=== PATIENT | female | born 1975 | race Caucasian/White ===

== ENCOUNTER 2016-08-25 07:49 | Emergency (ER) | payer SELFPAY ==
[~2016-08-25] VITALS: Ht 160 cm; Wt 65.0 kg
[~2016-08-25 07:49] MED LIST: IBUP600T26 PO
[2016-08-25 07:52] VITALS: BP 128/77; PULSE 102; RESP 15; TEMP 98.2; O2SAT 99
--- NOTE | 2016-08-25 08:08 | PD ---
HPI Chief Complaint: Laceration/Skin Injury Time Seen by Provider: 08:04 Travel History International Travel<30 days: No Contact w/Intl Traveler<30days: No Traveled to known affect area: No History of Present Illness HPI Patient comes in with multiple complaints. Patient states around 3:00 this morning she had to break into her vehicle after accidentally locking her keys in them. Patient states she used her left hand to break the window causing a small laceration to the ulnar aspect of the left wrist. Patient states she then slipped injuring her right foot and landing on her left knee causing pain in both. Patient reports a burning sensation around the site of the laceration on her wrist without radiation. Describes a "hurting" pain is a lateral proximal aspect of the right foot without radiation. Patient reports a throbbing aching pain in the anterior aspect of her left knee around the abrasions without radiation. Pain is worse with certain movement and palpation. Patient denies anything for this or that washing the wounds prior to coming to the emergency department. Patient reports that her tetanus shot is up-to-date. PFSH Past Medical History Asthma: Yes Anxiety: Yes Depression: Yes Cancer: No Cardiovascular Problems: No High Cholesterol: Yes Diabetes: No Diminished Hearing: No Endocrine: Yes Genitourinary: Yes (RECURRENT / FREQUENT UTI'S) Immune Disorder: No Kidney Stones: Yes Musculoskeletal: Yes (HERNIATED DISCS) Neurologic: No Psychiatric: Yes Reproductive: No Respiratory: Yes (ASTHMA) Immunizations Current: No Thyroid Disease: Yes ?: Not : 12 Para: 3 Miscarriage: 9 Tubal Ligation: Yes Past Surgical History Section: Yes Cholecystectomy: Yes Social History Alcohol Use: Yes Tobacco Use: Yes (1 PPD) Substance Use: No Allergies-Medications (Allergen,Severity, Reaction): Coded Allergies: Aspirin (Verified Allergy, Severe, N&V, 08/25/16) Gabapentin (Verified Allergy, Severe, SWELLING-RASH, 08/25/16) Macrolides (Verified Allergy, Severe, 08/25/16) vent-fibrillation Phenergan (Verified Allergy, Severe, 08/25/16) Vent-Tachycardia Zofran (Verified Allergy, Severe, 08/25/16) Multifocal PVC's secondary to prolonged QT interval w/ runs of ventricular tachycardia Tramadol (Verified Allergy, Mild, GI UPSET, 08/25/16) Morphine (Verified Allergy, Unknown, 08/25/16) Ultram (Verified Allergy, Unknown, 08/25/16) Codeine (Verified Adverse Reaction, Severe, NAUSEA/VOMITING, 08/25/16) Uncoded Allergies: fluoroquinolones (Allergy, Severe, 07/13/15) vent-fibrillation Reported Meds & Prescriptions Reported Meds & Active Scripts Active No Active Prescriptions or Reported Medications Review of Systems Except as stated in HPI: all other systems reviewed are Neg Physical Exam Narrative GENERAL: Well-developed, well nourished, in no acute distress, and non-ill appearing. SKIN: Warm and dry. Superficial abrasions noted over left knee. Small laceration noted over aspect left wrist. HEAD: Atraumatic. Normocephalic. EYES: Pupils equal and round. EOMI. No scleral icterus. No injection or drainage. ENT: No nasal bleeding or discharge. Mucous membranes pink and moist. NECK: Trachea midline. Supple. No nuclear rigidity. CARDIOVASCULAR: Radial dorsal pulses 2+ and intact bilaterally. Capillary refill less than 2 seconds. No pedal edema. RESPIRATORY: No accessory muscle use. No respiratory distress. MUSCULOSKELETAL: No obvious deformities. No clubbing. No cyanosis. No edema. Full range of motion. Wrist: FROM and equal BL with passive flexion, extension, and pronation/supination. Capillary refill less than 2 seconds distal to injury and equal BL. FROM distal to injury and equal BL. Strength distal to injury equal BL. NV intact distal to injury. Flexion and extension of thumb equal BL. Equal strength and movement with abduction/adductions of BL fingers. Board Catcher strength equal BL. No tenderness to the anatomical snuffbox. Patient reports tenderness to palpation around laceration left wrist.Knee: Negative patellar apprehension, varus and valgus maneuvers, anterior draw test, and Kyree test. Pulses equal BL distal to injury. Capillary refill less than 2 seconds distal to injury and equal BL. FROM distal to injury and equal BL. Strength distal to injury equal BL. NV intact distal to injury. Dorsal pulses equal BL. Patient reports tenderness to palpation over anterior aspect of left knee. Ankle: Neagative anterior draw and Yeager test. Negative Otis's sign. No laxity noted with passive inversion and eversion of BL ankles. Negative squeeze test. Pulses equal BL distal to injury. Capillary refill less than 2 seconds distal to injury and equal BL. Sensation equal BL 1st web space. FROM of toes distal to injury and equal BL. NV intact distal to injury and equal BL. Dorsal pulses equal BL. Patient reports tenderness around soft tissue swelling noted proximal lateral aspect dorsal surface of right foot. NEUROLOGICAL: Awake and alert. No obvious cranial nerve deficits. Motor grossly within normal limits. Normal speech. PSYCHIATRIC: Appropriate mood and affect; insight and judgment normal. Data Data Last Documented VS Vital Signs Date Time Temp Pulse Resp B/P Pulse Ox O2 Delivery O2 Flow Rate FiO2 08/25/16 07:52 98.2 102 15 128/77 99 Orders Wound Care (08/25/16 08:02) Bupivacaine Pf 0.5% Inj (Marcaine Pf 0.5 (08/25/16 08:15) Foot, Complete ([id number]) (08/25/16 ) Knee, Complete (4vws) (08/25/16 ) Wrist, Complete ([id number]) (08/25/16 ) Ice/Cold Pack (08/25/16 08:08) Splint Or Brace Apply/Monitor (08/25/16 10:02) [facility] Medical Decision Making Medical Screen Exam Complete: Yes Emergency Medical Condition: Yes Differential Diagnosis Fracture, strain, contusion, abrasion, laceration, foreign body, other Narrative Course The patient suffered laceration to the extremity. There was no evidence to suggest foreign bodies. Visual, tactile and radiographic exams were unremarkable without evidence of foreign body at this time. There was no evidence of neurovascular injury. The patient had a normal distal vascular exam , and had full normal motor and sensory exams. There was also no evidence or tendon injury, with normal distal full range of motions, flexion, extension, abduction, adduction and opponens. There was no evidence of local joint space involvement at this time. The patient was irrigated with copious sterile normal saline and primary repair was performed. Please see procedure note. The patient was given signs and symptom warnings for infection, such as increasing pain, redness, swelling, associated heat, pus or fever. The patient was warned of possible unseen foreign body and instructed to return immediately if signs or symptoms develop. The patient was given instructions for timely follow up and for removal. The abrasions are very superficial and non-repairable. There was no evidence to suggest foreign bodies. Visual and tactile exams were unremarkable. There was no evidence of neurovascular injury as well. The patients wound/s were cleaned and dressed. The patient was given signs and symptom warnings for infection, such as increasing pain, redness, swelling, associated heat, pus or fever. The patient appears to have suffered a contusion of the knee and foot. There is no clinical evidence to suspect bony injury by exam. Radiographic examination revealed no fracture seen at this time. The patient has full range of motion on active and passive motions. There is no significant edema. There is no proximal or distal joint effusion. The distal extremity appears neurovascularly intact, without evidence of neurovascular injury nor compartment syndrome. Tendon exam also was intact. The patient was discharged and given warnings for vascular compromise. The patient is to follow up with their regular physician. The patient agrees with plan. Patient in no obvious distress upon re-evaluation. All pertinent Radiology result(s) discussed with patient. Any questions/concerns in reference to patient diagnosis/condition discussed and clarified prior to patient's discharge. Reinforced sheer importance of close follow up with patient's primary physician or primary care clinic. Instructed patient to return to ED immediately, if symptoms return/worsen. Pt showed understanding of above instructions. Further instructions and recommendations were detailed in discharge paperwork. Pt ambulated without difficulty out of ED at discharge. Procedures Procedure Narrative LACERATION REPAIR LOCATION: Left wrist ulnar aspect LENGTH: Approximately 1.5 cm NUMBER OF STITCHES/THERESE: 3 simple interrupted REPAIR: Verbal consent was obtained. The area of the laceration was cleaned and prepped. The laceration was infiltrated with Marcaine without epi. The wound was copiously irrigated and explored without evidence of foreign body, bony involvement, ligament injury, tendon injury, or neurovascular injury. The wound was closed using 4-0 Vicryl. This was a single layer repair. A sterile dressing was applied by nurse. The patient was advised to keep the affected area as clean and dry as possible using soap and water. There were no complications. Patient tolerated the procedure well. Diagnosis Primary Impression: Laceration Additional Impressions: Contusion Qualified Code: S80.02XA - Contusion of left knee, initial encounter Right foot pain Patient Instructions: Care For Your Absorbable Stitches (ED), Contusion in Adults (ED), Foot Sprain (ED), General Instructions, Laceration (ED) Additional Instructions: Follow-up with your primary care physician this week for reevaluation. Follow- up through primary care doctor or return here in 10-14 days for suture removal. Using [id number] Tylenol and/or ibuprofen as needed for pain. Actually on the packaging. Apply ice to affected area 20 minutes per hour as needed for pain. Keep wound dry and clean as possible using soap and water. Use Neosporin to promote healing. Return to the emergency department if symptoms get worse. Scripts No Active Prescriptions or Reported Meds Disposition: 01 DISCHARGE HOME Condition: Stable Rommel Thomas Aug 25, 2016 08:08
[2016-08-25] MEDS ORDERED: BUPIVACAINE HCL PF 0.5% 10 ML VIAL INFIL ONE (08:15)
--- NOTE | 2016-08-25 09:19 | RADRPT ---
EXAM DATE/TIME: 08/25/2016 08:23 [facility] COMPARISON: No previous studies available for comparison. INDICATIONS : Left knee pain [place] in the park [place]. MEDICAL HISTORY : None. SURGICAL HISTORY : None. ENCOUNTER: Initial ACUITY: 1 day PAIN SCORE: 10/10 LOCATION: Left knee. FINDINGS: There is minimal loss of articular cartilage in the medial compartment. There is no joint effusion o r fracture. CONCLUSION: Mild degenerative changes. Otherwise negative. Jose Ramon Allan MD FACR on August 25, 2016 at 9:17 Board Certified Radiologist. This report was verified electronically.
--- NOTE | 2016-08-25 09:20 | RADRPT ---
EXAM DATE/TIME: 08/25/2016 08:25 [facility] COMPARISON: No previous studies available for comparison. INDICATIONS : Left wrist pain and laceration after [place] fall in the park [place]. MEDICAL HISTORY : None. SURGICAL HISTORY : None. ENCOUNTER: Initial ACUITY: 1 day PAIN SCORE: 10/10 LOCATION: Left lateral wrist. FINDINGS: Three view examination of the left wrist demonstrates no soft tissue swelling, dislocation, or fractu re. There is evidence for laceration on the lateral side of the wrist. The carpal bones are in maria victoria l alignment. The joint spaces are maintained. Bony mineralization is normal. CONCLUSION: Laceration lateral side of the wrist without fracture. Jose Ramon Allan MD FACR on August 25, 2016 at 9:18 Board Certified Radiologist. This report was verified electronically.
--- NOTE | 2016-08-25 09:58 | RADRPT ---
EXAM DATE/TIME: 08/25/2016 08:21 [facility] COMPARISON: No previous studies available for comparison. INDICATIONS: Right foot pain after [place] fall in the park [place]. MEDICAL HISTORY: Previous right foot and ankle fracture. SURGICAL HISTORY: None. ENCOUNTER: Initial ACUITY: 1 day PAIN SCORE: 10/10 LOCATION: Right foot. FINDINGS: There is deformity of the distal fifth metatarsal. Alignment is anatomic. Fracture is not appreciat ed. CONCLUSION: Negative for a fracture. Jose Ramon Allan MD FACR on August 25, 2016 at 9:15 Board Certified Radiologist. This report was verified electronically.
== END 2016-08-25 10:59 | disposition home or self-care (01) ==
LOC: NEPB 07:49
DX: S61.512A Laceration without foreign body of left wrist, initial encounter (principal); S80.02XA Contusion of left knee, initial encounter; M79.671 Pain in right foot; W18.02XA Striking against glass with subsequent fall, initial encounter
CPT/HCPCS: 12001; 73110; 73564; 73630